=== PATIENT | male | born 1970 | race Caucasian/White ===

== ENCOUNTER 2016-10-18 06:19 | Emergency (ER) | payer OTHER ==
--- NOTE | 2016-10-18 06:56 | ER Document Report ---
ED General - General Mode of Arrival: Ambulatory Information source: Patient TRAVEL OUTSIDE OF THE [place] IN LAST 30 DAYS: No - HPI Patient complains to provider of: Hypertension and Chest Pain Onset: Yesterday Onset/Duration: Constant Associated symptoms: Other - see notes above <ISIDRA MERCER - Last Filed: 10/18/16 06:49> <BENITA BLOOM - Last Filed: 10/18/16 08:17> - General Chief Complaint: High Blood Pressure Stated Complaint: BLOOD PRESSURE PROBLEMS Notes: 46 year old male with history of hypertension and hyperlipidemia presents to the ED complaining of elevated blood pressure and substernal chest pain that started yesterday morning at approximately 0830 and was constant throughout the day. Patient explains that he started taking 2.5 mg Lisinopril 6 months ago and reports that he developed intermittent chest pains and tinnitus secondary to this. Patient stopped taking the medication, but resumed them. Patient has recently quit smoking and reports that his acid reflux had subsided, but has recently started coming back. Patient reports that he thought the pain was from "gas", but it is "mostly gone now" after coming to the ED 1-2 hours ago. Patient 's father and brother both had MIs in their early 40s. According to ED nursing notes, patient has been complaining of increasing anxiety recently. (ISIDRA MERCER) - Related Data Allergies/Adverse Reactions: No Known Allergies Allergy (Verified 01/24/13 19:47) Home Medications: Current Home Medications Atorvastatin Calcium 20 mg PO DAILY 10/18/16 [History] Bupropion HCl [Bupropion Xl] 300 mg PO DAILY 10/18/16 [History] Lisinopril [Prinivil 2.5 mg Tablet] 2.5 mg PO DAILY 10/18/16 [History] Multivitamin [Multivitamins] 1 cap PO DAILY 10/18/16 [History] Past Medical History - General Information source: Patient - Social History Smoking Status: Former Smoker Chew tobacco use (# tins/day): No Frequency of alcohol use: Rare Drug Abuse: None Family History: Reviewed & Not Pertinent Patient has suicidal ideation: No Patient has homicidal ideation: No - Past Medical History Cardiac Medical History: Reports: Hx Hypertension Neurological Medical History: Reports: Other - spina bifida Renal/ Medical History: Denies: Hx Peritoneal Dialysis GI Medical History: Reports: Hx Gastroesophageal Reflux Disease Past Surgical History: Reports: Hx Orthopedic Surgery - Rt foot - Immunizations Hx Diphtheria, Pertussis, Tetanus Vaccination: No <ISIDRA MERCER - Last Filed: 10/18/16 06:49> Review of Systems - Review of Systems Constitutional: No symptoms reported EENT: No symptoms reported Cardiovascular: See HPI, Chest pain, Other - hypertension Respiratory: No symptoms reported Gastrointestinal: See HPI, Other - acid reflux Genitourinary: No symptoms reported Male Genitourinary: No symptoms reported Musculoskeletal: No symptoms reported Skin: No symptoms reported Hematologic/Lymphatic: No symptoms reported Neurological/Psychological: See HPI, Anxiety -: Yes All other systems reviewed and negative <ANTONIO MERCERUR - Last Filed: 10/18/16 06:49> Physical Exam - General General appearance: Alert In distress: None - HEENT Head: Normocephalic, Atraumatic Eyes: Normal Extraocular movements intact: Yes Pupils: PERRL - Respiratory Respiratory status: No respiratory distress Chest status: Nontender Breath sounds: Normal Chest palpation: Normal - Not painful to sternal palpation or coughing. - Cardiovascular Rhythm: Regular Heart sounds: Normal auscultation - Abdominal Inspection: Normal Distension: No distension Tenderness: Nontender - Back Back: Normal - Extremities General upper extremity: Normal inspection, Normal ROM General lower extremity: Normal inspection, Normal ROM - Neurological Neuro grossly intact: Yes - Psychological Associated symptoms: Normal affect, Normal mood - Skin Skin Temperature: Warm Skin Moisture: Dry Skin Color: Normal <ISIDRA MERCER - Last Filed: 10/18/16 06:49> Course <ISIDRA MERCER - Last Filed: 10/18/16 06:49> - Laboratory Result Diagrams: 10/18/16 07:00 10/18/16 07:00 - Diagnostic Test Radiology reviewed: Image reviewed, Reports reviewed - CXR--NAD - EKG Interpretation by Pr EKG shows normal: Sinus rhythm, Edmond, Intervals, QRS Complexes, ST-T Waves Rate: Normal - 89 Rhythm: NSR Edmond/QRS: IVCD When compared to previous EKG there are: Previous EKG unavailable <BENITA BLOOM - Last Filed: 10/18/16 08:17> - Re-evaluation Re-evalutation: 10/18/16 08:08 The patient had constant pain for 24 hours. EKG is essentially normal. Troponins are undetectable. Total CK is a little elevated. At this time his blood pressure is 121/89 with no intervention. It is unlikely this chest pain is cardiac in origin. Due to the patient's significant family history, he will be referred to cardiology for follow-up testing. 10/18/16 08:14 On reviewing the findings with the patient, he advises that he did start exercising recently, initially walking and it didn't seem to help so he got an exercise bike about 2 weeks ago. (BENITA BLOOM) - Vital Signs Vital signs: Temp Pulse Resp BP Pulse Ox 97.9 F 87 17 121/89 H 99 10/18/16 06:24 10/18/16 06:24 10/18/16 08:01 10/18/16 08:01 10/18/16 08:01 - Laboratory Laboratory results interpreted by me: 10/18/16 10/18/16 07:00 07:00 Creatine Kinase 452 H CK-MB (CK-2) 4.66 H Discharge <ISIDRA MERCER - Last Filed: 10/18/16 06:49> <BENITA BLOOM - Last Filed: 10/18/16 08:17> - Discharge Clinical Impression: Chest pain Qualifiers: Chest pain type: unspecified Qualified Code(s): R07.9 - Chest pain, unspecified Condition: Stable Disposition: HOME, SELF-CARE Additional Instructions: Chest Pain of Unclear Cause: The exact cause of your chest pain isn't clear. Fortunately, there is no evidence of a dangerous medical condition. Further testing may be required to find the source of the pain. Most often, we find that this pain is coming from the chest wall -- the muscles or rib joints in the chest. But chest pain can come from the lung and lung lining, the esophagus, the heart valves or heart lining, and even the stomach or gallbladder. Rest. Eat lightly until the pain is gone. We may prescribe medicine for pain and inflammation. You should call the physician immediately if the pain radiates to the shoulder, jaw or arms; if you start to run a fever or develop a cough; or if you develop shortness of breath, or other new or alarming symptoms. Follow-up with your primary care provider in the next few days for further evaluation of your chest pain, or Follow-up with Dr. Kilpatrick's office for further evaluation of your chest pain. RETURN TO THE EMERGENCY ROOM IF ANY NEW OR WORSENING SYMPTOMS. Referrals: FELICE CHAPPELL MD [ACTIVE STAFF] - Follow up in 3-5 days Scribe Attestation: 10/18/16 08:17 I personally performed the services described in the documentation, reviewed and edited the documentation which was dictated to the scribe in my presence, and it accurately records my words and actions. (BENITA BLOOM) Scribe Documentation - Scribe Written by Scribe:: Brisa Sarmiento, 10/18/2016 0700 acting as scribe for :: Khadra <ISIDRA MERCER - Last Filed: 10/18/16 06:49>
[2016-10-18 07:09] LABS: ABSOLUTE BASOPHILS # (AUTO) 0.1 10^3/uL (0.0-0.2); ABSOLUTE EOSINOPHILS # (AUTO) 0.2 10^3/uL (0.0-0.6); ABSOLUTE LYMPHOCYTES (AUTO) 2.2 10^3/uL (0.5-4.7); ABSOLUTE MONOCYTES (AUTO) 0.7 10^3/uL (0.1-1.4); ABSOLUTE NEUT (AUTO) 4.9 10^3/uL (1.7-8.2); BASOPHILS % (AUTO) 0.9 % (0-2); EOSINOPHILS % (AUTO) 2.2 % (0-6); HEMATOCRIT 44.5 % (37.9-51.0); HEMOGLOBIN 15.4 g/dL (13.5-17.0); HGB HCT DIFFERENCE 1.7; LYMPHOCYTES % (AUTO) 26.8 % (13-45); MEAN CORPUSCULAR HEMOGLOBIN 30.2 pg (27.0-33.4); MEAN CORPUSCULAR HGB CONC 34.6 g/dL (32.0-36.0); MEAN CORPUSCULAR VOLUME 88 fl (80-97); MONOCYTES % (AUTO) 8.9 % (3-13); RED BLOOD COUNT 5.09 10^6/uL (4.35-5.55); RED CELL DISTRIBUTION WIDTH 12.5 % (11.5-14.0); SEGMENTED NEUTROPHILS % (AUTO) 61.2 % (42-78); WHITE BLOOD COUNT 8.1 10^3/uL (4.0-10.5)
[2016-10-18 07:28] LABS: ALANINE AMINOTRANSFERASE 57 U/L (21-72); ALBUMIN 4.9 g/dL (3.5-5.0); ALKALINE PHOSPHATASE 79 U/L (38-126); ANION GAP 13 (5-19); ASPARTATE AMINO TRANSFERASE 39 U/L (17-59); BILIRUBIN,DIRECT 0.4 mg/dL (0.0-0.4); BILIRUBIN,TOTAL 0.9 mg/dL (0.2-1.3); BLOOD UREA NITROGEN 13 mg/dL (7-20); CALCIUM 10.1 mg/dL (8.4-10.2); CARBON DIOXIDE 27 mmol/L (22-30); CHLORIDE 103 mmol/L (98-107); CREATINE KINASE 452 U/L (55-170); CREATININE RESULT 0.96 mg/dL (0.52-1.25); GLUCOSE 106 mg/dL (75-110); POTASSIUM 4.3 mmol/L (3.6-5.0); SODIUM 143.1 mmol/L (137-145); TOTAL PROTEIN 7.9 g/dL (6.3-8.2)
--- NOTE | 2016-10-18 07:38 | EKG REPORT ---
SEVERITY:- ABNORMAL ECG - SINUS RHYTHM NONSPECIFIC INTRAVENTRICULAR CONDUCTION DELAY : Confirmed by: Hector Rubin MD 18-Oct-2016 07:37:28
[2016-10-18 07:39] LABS: CREATINE KINASE MB 4.66 ng/mL (<4.55)
[2016-10-18 07:40] LABS: TROPONIN I < 0.012 ng/mL
[2016-10-18 08:32] VITALS: BP 135/89
== END 2016-10-18 08:32 | disposition home or self-care (01) ==
LOC: ER 06:19
DX: R07.9 Chest pain, unspecified (principal); I10 Essential (primary) hypertension; E78.5 Hyperlipidemia, unspecified; F41.9 Anxiety disorder, unspecified; Z87.891 Personal history of nicotine dependence
CPT/HCPCS: 36415; 71010; 80053; 82550; 82553; 84484; 85025; 93005; 93010; 99284

== ENCOUNTER 2018-04-14 13:28 | Emergency (ER) | payer OTHER ==
[2018-04-14] MEDS ORDERED: NORMAL SALINE 1000 ML 1,000 ML IV ONE (14:25)
[2018-04-14] MEDS ORDERED: VANCOMYCIN HCL INJ 1000 MG VIAL IV ONE (14:26)
--- NOTE | 2018-04-14 15:03 | RADIOLOGY REPORT (SQ) ---
EXAM DESCRIPTION: TOE LEFT COMPLETED DATE/TIME: 04/14/2018 2:50 pm REASON FOR STUDY: concern for osteo in 5th COMPARISON: None. NUMBER OF VIEWS: Two views. TECHNIQUE: AP oblique images acquired of the left fifth toe. LIMITATIONS: None. FINDINGS: MINERALIZATION: Normal. BONES: No acute fracture or dislocation. No worrisome bone lesions. JOINTS: No effusions. SOFT TISSUES: No soft tissue swelling. No foreign body. OTHER: No other significant finding. IMPRESSION: NEGATIVE STUDY OF THE LEFT TOE. NO RADIOGRAPHIC EVIDENCE OF ACUTE INJURY. COMMENT: SITE OF TRAUMA/COMPLAINT MARKED/STAMP COMPLETED: No TECHNICAL DOCUMENTATION: JOB ID: [id number] [employer]- All Rights Reserved Reading location - IP/workstation name: [email or web address]
--- NOTE | 2018-04-14 15:15 | ER Document Report ---
ED Medical Screen (RME) - General Chief Complaint: Toe Injury Stated Complaint: TOE PAIN Time Seen by Provider: 04/14/18 14:19 TRAVEL OUTSIDE OF THE [place] IN LAST 30 DAYS: No - HPI Onset: Other - 47-year-old male with a history of hypertension and hyperlipidemia that presents for pain and swelling in his left foot as well as pain in the groin. He denies fevers or chills does endorse difficulty with ambulation and a swollen node in his groin. - Related Data Allergies/Adverse Reactions: No Known Allergies Allergy (Verified 01/24/13 19:47) Past Medical History - Social History Chew tobacco use (# tins/day): No Frequency of alcohol use: Occasional Drug Abuse: None - Past Medical History Cardiac Medical History: Reports: Hx Hypercholesterolemia, Hx Hypertension Renal/ Medical History: Denies: Hx Peritoneal Dialysis GI Medical History: Reports: Hx Gastroesophageal Reflux Disease Psychiatric Medical History: Reports: Hx Depression Past Surgical History: Reports: Hx Orthopedic Surgery - Rt foot - Immunizations Hx Diphtheria, Pertussis, Tetanus Vaccination: No Physical Exam - Vital signs Vitals: Temp Pulse Resp BP Pulse Ox 98.8 F 116 H 14 142/85 H 97 04/14/18 13:33 04/14/18 13:33 04/14/18 13:33 04/14/18 13:33 04/14/18 13:33 Course - Re-evaluation Re-evalutation: 04/14/18 15:14 This 47-year-old man presents with swelling and pain over the left lower extremity. Does demonstrate stranding proximally, he does have tachycardia and looks somewhat unwell. We will obtain an x-ray as well as other labs for possible myelitis. I performed a rapid screening examination of this patient, will defer further disposition determination of workup to attending provider in the emergency department. - Vital Signs Vital signs: Temp Pulse Resp BP Pulse Ox 98.8 F 116 H 14 142/85 H 97 04/14/18 13:33 04/14/18 13:33 04/14/18 13:33 04/14/18 13:33 04/14/18 13:33
--- NOTE | 2018-04-14 15:24 | ER Document Report ---
ED Extremity Problem, Lower - General Chief Complaint: Toe Injury Stated Complaint: TOE PAIN Time Seen by Provider: 04/14/18 14:19 Notes: This is a 47-year-old male to the emergency department for evaluation of left fifth digit on the left foot possible infection. Has redness and pain. 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 States that he had a large blister that he was able to pop after soaking it in some Epsom salts last night. Having some throbbing going on in the foot. Cannot describe a time when it was injured. TRAVEL OUTSIDE OF THE [place] IN LAST 30 DAYS: No - HPI Patient complains to provider of: Pain, Swelling Location: 5th Toe Occurred: Last week Where: Home Onset/Duration: Gradual - Related Data Allergies/Adverse Reactions: No Known Allergies Allergy (Verified 01/24/13 19:47) Past Medical History - Social History Smoking Status: Former Smoker Chew tobacco use (# tins/day): No Frequency of alcohol use: Occasional Drug Abuse: None Family History: Reviewed & Not Pertinent Patient has suicidal ideation: No Patient has homicidal ideation: No - Past Medical History Cardiac Medical History: Reports: Hx Hypercholesterolemia, Hx Hypertension Renal/ Medical History: Denies: Hx Peritoneal Dialysis GI Medical History: Reports: Hx Gastroesophageal Reflux Disease Psychiatric Medical History: Reports: Hx Depression Past Surgical History: Reports: Hx Orthopedic Surgery - Rt foot - Immunizations Hx Diphtheria, Pertussis, Tetanus Vaccination: No Review of Systems - Review of Systems Notes: Constitutional: denies: Chills, Diaphoresis, Fever, Malaise, Weakness EENT: denies: Eye discharge, Blurred vision, Tearing, Double vision, Nose congestion, Nose discharge, Throat swelling, Mouth pain Cardiovascular: denies: Palpitations, Heart racing, Orthopnea, Dyspnea, Chest pain Respiratory: denies: Cough, Hurts to breathe, Wheezing, Shortness of breath Gastrointestinal: denies: Abdominal pain, Diarrhea, Nausea, Vomiting, Black stools, bright red blood in stool Genitourinary: denies: Burning, Dysuria, Discharge, Frequency, Flank pain, Hematuria Musculoskeletal: denies: Joint pain, Joint swelling, Muscle pain, Muscle stiffness, back pain with fifth digit left foot red and swollen Hematologic/Lymphatic: denies: Anemia, Easy bleeding, Easy bruising, Blood clots Neurological/Psychological: denies: Confusion, Dementia, Depression, Loss of consciousness Skin: There is redness and erythema noted with drainage noted to the left fifth digit on the left foot. Physical Exam - Vital signs Vitals: Temp Pulse Resp BP Pulse Ox 98.8 F 116 H 14 142/85 H 97 04/14/18 13:33 04/14/18 13:33 04/14/18 13:33 04/14/18 13:33 04/14/18 13:33 Interpretation: Tachycardic. No: Tachypneic, Febrile - General General appearance: Appears well, Alert - Respiratory Respiratory status: No respiratory distress Chest status: Nontender Breath sounds: Normal Chest palpation: Normal - Cardiovascular Rhythm: Tachycardia Heart sounds: Normal auscultation Murmur: No - Abdominal Inspection: Normal Distension: No distension Bowel sounds: Normal Tenderness: Nontender Organomegaly: No organomegaly - Extremities General upper extremity: Normal inspection, Normal ROM, Normal temperature General lower extremity: Nontender, Normal ROM, Other - The fifth digit on the left foot demonstrates erythema and moderate amount of swelling. There appears to be some drainage and redness with thickening of the skin with callus formation on the left fifth digit of the foot. It is a small amount of redness noted on the top of the left foot with small area of streaking noted going up to about the ankle. There is no calf tenderness. No Homans.. No: Jerson's sign - Neurological Neuro grossly intact: Yes Cognition: Normal Orientation: AAOx4 Mariah Coma Scale Eye Opening: Spontaneous [place] Coma Scale Verbal: Oriented [place] Coma Scale Motor: Obeys Commands [place] Coma Scale Total: 15 Speech: Normal Motor strength normal: LUE, RUE, LLE, RLE Sensory: Normal - Skin Skin Temperature: Warm Skin Moisture: Dry Skin Color: Normal, Other - Redness and edema noted to the fifth digit on the left foot Course - Re-evaluation Re-evalutation: 04/14/18 15:25 This is a well-appearing male in no acute distress. Does have infection present in the fifth digit on the left foot. Small amount of edema noted to the foot. At this time though it does not look like he has a significant bacterial infection. Patient states that his heart is always racing when he goes to [facility] due to his anxiety. 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 Has neuropathy so does not feel this callus forming and then it got infected. I think this patient will do just fine with an initial dose of IV antibiotics followed by some oral antibiotics. We will give him a some follow-up information for podiatry as well as general surgery as he will likely need wound consult. Patient has follow-up appointment with his primary care doctor in approximately 3 weeks. - Vital Signs Vital signs: Temp Pulse Resp BP Pulse Ox 98.8 F 116 H 14 142/85 H 97 04/14/18 13:33 04/14/18 13:33 04/14/18 13:33 04/14/18 13:33 04/14/18 13:33 Discharge - Discharge Clinical Impression: Abscess of fifth toe of left foot Condition: Good Disposition: HOME, SELF-CARE Instructions: Cellulitis ([facility]), Foot or Leg Ulcer ([facility]) Additional Instructions: It will be very important that you follow-up with your regular doctor for repeat evaluation. I have provided follow up information for a general surgeon and two additional podiatrists. Please call these physicians to schedule a follow up appointment to have your toe evaluated. Please keep a close eye on your foot and inspect it daily to make sure that the redness is not getting worse. if the redness and swelling is getting worse then return to the ED for a repeat evaluation if you are unable to be seen by podiatry or surgery Prescriptions: Clindamycin HCl 300 mg PO QID 10 Days #40 capsule Referrals: MICHELLE BLACKWELL MD [[facility]CHIN[facility]] - Follow up in 3-5 days ANT MENENDEZ DPM [ACTIVE STAFF] - Follow up in 3-5 days REGINA RENO DPM [ACTIVE STAFF] - Follow up in 3-5 days
[2018-04-14 15:48] LABS: ABSOLUTE EOSINOPHILS # (AUTO) 0.1 10^3/uL (0.0-0.6); ABSOLUTE LYMPHOCYTES (AUTO) 1.3 10^3/uL (0.5-4.7); ABSOLUTE MONOCYTES (AUTO) 0.8 10^3/uL (0.1-1.4); ABSOLUTE NEUT (AUTO) 6.7 10^3/uL (1.7-8.2); BASOPHILS % (AUTO) 0.5 % (0-2); EOSINOPHILS % (AUTO) 0.9 % (0-6); HEMOGLOBIN 13.8 g/dL (13.5-17.0); LYMPHOCYTES % (AUTO) 14.8 % (13-45); MEAN CORPUSCULAR HEMOGLOBIN 30.8 pg (27.0-33.4); MEAN CORPUSCULAR HGB CONC 34.6 g/dL (32.0-36.0); MEAN CORPUSCULAR VOLUME 89 fl (80-97); MONOCYTES % (AUTO) 9.3 % (3-13); PLATELET COUNT 296 10^3/uL (150-450); RED CELL DISTRIBUTION WIDTH 13.1 % (11.5-14.0); SEGMENTED NEUTROPHILS % (AUTO) 74.5 % (42-78); TOTAL CELLS COUNTED % (AUTO) 100 %
[2018-04-14 16:07] LABS: ALANINE AMINOTRANSFERASE 45 U/L (21-72); ALBUMIN 4.6 g/dL (3.5-5.0); ALKALINE PHOSPHATASE 64 U/L (38-126); ANION GAP 12 (5-19); ASPARTATE AMINO TRANSFERASE 33 U/L (17-59); BILIRUBIN,DIRECT 0.3 mg/dL (0.0-0.4); BILIRUBIN,TOTAL 0.7 mg/dL (0.2-1.3); BLOOD UREA NITROGEN 12 mg/dL (7-20); CALCIUM 10.2 mg/dL (8.4-10.2); CARBON DIOXIDE 26 mmol/L (22-30); CHLORIDE 101 mmol/L (98-107); GLUCOSE 122 mg/dL (75-110); POTASSIUM 4.3 mmol/L (3.6-5.0); SODIUM 139.3 mmol/L (137-145); TOTAL PROTEIN 7.6 g/dL (6.3-8.2)
[2018-04-14 17:11] VITALS: BP 135/78
== END 2018-04-14 17:11 | disposition home or self-care (01) ==
LOC: ER 13:28
DX: L02.612 Cutaneous abscess of left foot (principal); L84 Corns and callosities; G57.92 Unspecified mononeuropathy of left lower limb; I10 Essential (primary) hypertension; R00.0 Tachycardia, unspecified; Z87.891 Personal history of nicotine dependence
CPT/HCPCS: 99283; 36415; 87040; 83605; 85025; 80053; 73660; J7030; J3370

== ENCOUNTER 2018-07-06 14:36 | Emergency (ER) | payer OTHER ==
--- NOTE | 2018-07-06 15:31 | ER Document Report ---
ED General - General Chief Complaint: Chest Pain > 30 Stated Complaint: RIGHT ARM PAIN Time Seen by Provider: 07/06/18 15:15 TRAVEL OUTSIDE OF THE [place] IN LAST 30 DAYS: No - HPI Onset: Other - 2 month Onset/Duration: Gradual, Waxing and waning Quality of pain: Achy Severity: Mild Associated symptoms: None Exacerbated by: Movement Relieved by: Remaining still Similar symptoms previously: No Notes: Patient is a 47-year-old male that presents to the emergency department for chief complaint of right-sided chest pain. Patient reports pain on his right anterior chest radiating into his right axilla for the last 2 months. He states it occurs when he lifts his right arm above his head. He denies any pain with deep inspiration. He denies any palpitations shortness of breath and lightheadedness. He denies any recent surgery, travel or immobilization. He has no personal history or family history of DVT/PE or CAD. He denies taking any [id number] medication for his pain. 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 Past Medical History: Hypertension, hyperlipidemia Past Surgical History: Reviewed in chart Social History: Former smoker, occasional alcohol, denies drug use Family History: Reviewed and noncontributory for presenting illness Allergies: Reviewed, see documented allergy list. REVIEW OF SYSTEMS: CONSTITUTIONAL : No fever No chills No diaphoresis No recent illness EENT: No vision changes No congestion No sore throat CARDIOVASCULAR: chest pain No palpitations RESPIRATORY: No shortness of breath No cough No difficulty breathing GASTROINTESTINAL: No abdominal pain No nausea No vomiting No diarrhea GENITOURINARY: No dysuria No hematuria No difficulty urinating MUSCULOSKELETAL: No back pain No leg pain No arm pain SKIN: No rashes No lesions LYMPHATIC: No swollen, enlarged glands. NEUROLOGICAL: No lightheadedness No headache No weakness No paresthesias PSYCHIATRIC: No anxiety No depression PHYSICAL EXAMINATION: Vital signs reviewed, nursing noted reviewed. GENERAL: Well-appearing, well-nourished and in no acute distress. HEAD: Atraumatic, normocephalic. EYES: Eyes appear normal, extraocular movements intact, sclera anicteric, conjunctiva are normal. ENT: nares patent, oropharynx clear without exudates. Moist mucous membranes. NECK: Normal range of motion, supple without lymphadenopathy LUNGS: Breath sounds clear to auscultation bilaterally and equal. No wheezes rales or rhonchi. HEART: No chest wall tenderness or crepitus regular rate and rhythm without murmurs ABDOMEN: Soft, nontender, normoactive bowel sounds. No rebound, guarding, or rigidity. No masses appreciated. EXTREMITIES: Nontender, good range of motion, no pitting or edema. NEUROLOGICAL: No focal neurological deficits. Moves all extremities spontaneously Motor and sensory grossly intact on exam. PSYCH: Normal mood, normal affect. SKIN: Warm, Dry, normal turgor, no rashes or lesions noted on exposed skin - Related Data Allergies/Adverse Reactions: No Known Allergies Allergy (Verified 07/06/18 14:37) Past Medical History - Social History Smoking Status: Former Smoker Frequency of alcohol use: Rare Drug Abuse: None Family History: Reviewed & Not Pertinent Patient has suicidal ideation: No Patient has homicidal ideation: No - Past Medical History Cardiac Medical History: Reports: Hx Hypercholesterolemia, Hx Hypertension Renal/ Medical History: Denies: Hx Peritoneal Dialysis GI Medical History: Reports: Hx Gastroesophageal Reflux Disease Psychiatric Medical History: Reports: Hx Depression Past Surgical History: Reports: Hx Orthopedic Surgery - Rt foot - Immunizations Hx Diphtheria, Pertussis, Tetanus Vaccination: No Physical Exam - Vital signs Vitals: Temp Pulse Resp BP Pulse Ox 98.8 F 83 18 130/78 H 98 07/06/18 14:50 07/06/18 14:50 07/06/18 14:50 07/06/18 14:50 07/06/18 14:50 Course - Re-evaluation Re-evalutation: 07/06/18 15:30 Vitals reviewed. Nursing notes reviewed. EKG is normal. Patient's symptoms are reproducible with movement and have been ongoing for the last 2 months. I do not suspect ACS as a cause of his pain. X-ray will be obtained to evaluate for underlying pneumothorax or remote rib fracture. Patient offered ibuprofen for pain but states he does not want pain medication because his symptoms are very mild. 07/06/18 15:50 Patient's chest x-ray shows no acute process. He is hemodynamically stable and encouraged to follow with his primary care for reevaluation as needed. Chest X-Ray 07/06/18 15:26 IMPRESSION: NO ACUTE RADIOGRAPHIC FINDING IN THE CHEST. - Vital Signs Vital signs: Temp Pulse Resp BP Pulse Ox 98.8 F 83 18 130/78 H 98 07/06/18 14:50 07/06/18 14:50 07/06/18 14:50 07/06/18 14:50 07/06/18 14:50 - EKG Interpretation by Me Additional EKG results interpreted by me: 07/06/18 15:32 Interpreted by myself 1443: Normal sinus rhythm, rate 83, normal axis, no ectopy, no ST elevation Discharge - Discharge Clinical Impression: Chest wall pain Condition: Stable Disposition: HOME, SELF-CARE Instructions: Chest Wall Pain ([facility]) Additional Instructions: Please return to the emergency department if you have any worsening, or concern of your symptoms. Please return to the emergency department if you develop chest pain, difficulty breathing, severe abdominal pain, or ongoing vomiting. Please follow-up with your primary care physician in 2-3 days and any other recommended physicians. If prescribed, take all medications as directed. If you have any questions or concerns do not hesitate to return the emergency department for evaluation. [] Prescriptions: Ibuprofen [Ibu] 600 mg PO Q6 PRN #30 tablet PRN Reason: Pain Referrals: FIONA MONTERO MD [Primary Care Provider] - Follow up in 3-5 days
--- NOTE | 2018-07-06 15:47 | RADIOLOGY REPORT (SQ) ---
EXAM DESCRIPTION: CHEST 2 VIEWS COMPLETED DATE/TIME: 07/06/2018 3:34 pm REASON FOR STUDY: right chest pain COMPARISON: None. EXAM PARAMETERS: NUMBER OF VIEWS: two views TECHNIQUE: Digital Frontal and Lateral radiographic views of the chest acquired. RADIATION DOSE: NA LIMITATIONS: none FINDINGS: LUNGS AND PLEURA: No opacities, masses or pneumothorax. No pleural effusion. MEDIASTINUM AND HILAR STRUCTURES: No masses or contour abnormalities. HEART AND VASCULAR STRUCTURES: Heart normal size. No evidence for failure. BONES: No acute findings. HARDWARE: None in the chest. OTHER: No other significant finding. IMPRESSION: NO ACUTE RADIOGRAPHIC FINDING IN THE CHEST. TECHNICAL DOCUMENTATION: JOB ID: [id number] [employer]- All Rights Reserved Reading location - IP/workstation name: [email or web address]
--- NOTE | 2018-07-06 16:29 | EKG REPORT ---
SEVERITY:- NORMAL ECG - SINUS RHYTHM : Confirmed by: Brittney Vega MD 06-Jul-2018 16:29:04
[2018-07-06 17:33] VITALS: BP 130/86
== END 2018-07-06 16:50 | disposition home or self-care (01) ==
LOC: ER 14:36
DX: R07.89 Other chest pain (principal); I10 Essential (primary) hypertension; Z87.891 Personal history of nicotine dependence
CPT/HCPCS: 71046; 93005; 93010; 99285